=== PATIENT | female | born 1955 | race Caucasian/White ===

== ENCOUNTER → 2016-09-25 | Outpatient (CLI) | payer BC ==
[~2016-09-25] MED LIST: DOCU100C24 PO; HYDROCODONE-ACETAMIN PO; LEVO88TA4 PO; VITAMIN B12 PEG
== END | disposition home or self-care (01) ==
LOC: ROC 14:31
PROVIDERS: ATTEND Radiology Radiation Oncology
DX: C50.912 Malignant neoplasm of unspecified site of left female breast (principal); N64.89 Other specified disorders of breast
CPT/HCPCS: 99213; G0463

== ENCOUNTER 2017-04-20 23:36 | Inpatient (IN) | payer BC ==
[~2017-04-20] VITALS: Ht 152.4 cm; Wt 64.0 kg
[2017-04-21] MEDS ORDERED: SODIUM CHLORIDE 0.9% 1,000 ML IV ONE ×2 (00:28→03:05)
[2017-04-21] MEDS ORDERED: ONDANSETRON 2MG/ML, 2ML IVPush ONE (00:30)
[2017-04-21] MEDS ORDERED: SODIUM CHLORIDE FLUSH 10ML SYR IVF ONE (00:30)
[2017-04-21] MEDS ORDERED: HYDROmorphone 1 MG/ML, 1ML IVPush PRN ×2 (00:30→03:30)
[2017-04-21] MEDS ORDERED: HYDROmorphone 1 MG/ML, 1ML ONE (00:41)
[2017-04-21] MEDS ORDERED: ONDANSETRON 2MG/ML, 2ML ONE (00:41)
[2017-04-21 00:45] LABS: HEMATOCRIT 47.4 % (34.6-47.8); HEMOGLOBIN 15.9 g/dL (11.7-16.4); WHITE BLOOD COUNT 9.6 x10^3/uL (3.4-10)
[2017-04-21 00:58] LABS: ASPARTATE AMINO TRANSFERASE 22 U/L (15-37); BLOOD UREA NITROGEN 15 mg/dL (7-18)
[2017-04-21] MEDS ORDERED: OMNIPAQUE 350 MG/ML, 100ML BOTTLE ONE (02:03)
[2017-04-21] MEDS ORDERED: ONDANSETRON 2MG/ML, 2ML IVPush PRN ×2 (03:30→04:30)
[2017-04-21] MEDS ORDERED: SODIUM CHLORIDE FLUSH 10ML SYR IVF PRN (03:30)
[2017-04-21] MEDS ORDERED: CEFTRIAXONE PMX 1GM/50ML 50 ML ONE (03:36)
[2017-04-21] MEDS ORDERED: CEFTRIAXONE PMX 1GM/50ML 50 ML IVPB ONE (04:00)
[2017-04-21] MEDS ORDERED: morphine SULFATE 10 MG/ML, 1ML IVPush PRN (04:30)
[2017-04-21] MEDS ORDERED: ACETAMINOPHEN 325 MG TABLET PO PRN (04:30)
[2017-04-21] MEDS ORDERED: hydrALAzine 20 MG/ML, 1ML IVPush PRN (04:30)
[2017-04-21 04:43] VITALS: BP 138/78
[2017-04-21] MEDS: SODIUM CHLORIDE 0.9% 1,000 ML IV SCH ×2 (04:53→14:29)
[2017-04-21] MEDS ORDERED: ANASTROZOLE 1 MG TABLET PO SCH (05:00)
[2017-04-21] MEDS: ENOXAPARIN 40 MG/0.4 ML SQ SCH (05:27)
[2017-04-21] MEDS: ANASTROZOLE 1 MG TABLET PO SCH (05:29)
[2017-04-21] MEDS: LEVOTHYROXINE 75 MCG TABLET PO SCH (05:29)
[2017-04-21 06:50] VITALS: BP 101/63
[2017-04-21 13:40] VITALS: BP 127/62
[2017-04-21 20:51] VITALS: BP 94/52
[2017-04-22] MEDS: SODIUM CHLORIDE 0.9% 1,000 ML IV SCH ×3 (00:23→12:09)
[2017-04-22 03:14] VITALS: BP 97/50
[2017-04-22] MEDS: CEFTRIAXONE PMX 1GM/50ML 50 ML IV SCH (04:15)
[2017-04-22] MEDS: ENOXAPARIN 40 MG/0.4 ML SQ SCH (04:48)
[2017-04-22 05:35] LABS: BLOOD UREA NITROGEN 6 mg/dL (7-18)
[2017-04-22] MEDS: LEVOTHYROXINE 75 MCG TABLET PO SCH (05:41)
[2017-04-22] MEDS: ANASTROZOLE 1 MG TABLET PO SCH (05:42)
[2017-04-22 08:30] VITALS: BP 132/71
[2017-04-22 13:47] VITALS: BP 131/69
[2017-04-22] MEDS ORDERED: ACETAMINOPHEN 325 MG TABLET PO PRN (19:30)
[2017-04-22] MEDS ORDERED: hydrALAzine 20 MG/ML, 1ML IVPush PRN (19:30)
[2017-04-22] MEDS ORDERED: ONDANSETRON 2MG/ML, 2ML IVPush PRN (19:30)
[2017-04-22 21:52] VITALS: BP 117/63
[2017-04-23 02:47] VITALS: BP 114/64
[2017-04-23] MEDS: CEFTRIAXONE PMX 1GM/50ML 50 ML IV SCH (04:11)
[2017-04-23] MEDS: ENOXAPARIN 40 MG/0.4 ML SQ SCH (04:11)
[2017-04-23] MEDS: LEVOTHYROXINE 75 MCG TABLET PO SCH (05:46)
[2017-04-23] MEDS: ANASTROZOLE 1 MG TABLET PO SCH (05:47)
[2017-04-23] MEDS ORDERED: NITR100C56 PO (06:41)
[2017-04-23 07:16] VITALS: BP 125/77
[2017-04-23] MEDS ORDERED: FLU VACC QS2017-18 (36MOS+) UP/PF 0.5 ML IM-VACC ONE (10:30)
[2017-04-23 11:30] VITALS: BP 120/73
== END 2017-04-23 11:30 | disposition home or self-care (01) | DRG 389 ==
LOC: ED 23:59 → EDIP 04-21 03:05 → 4NOR 04-21 04:33
PROVIDERS: ADMIT Hospitalist; ATTEND Hospitalist
DX: K56.52 Intestinal adhesions [bands] with complete obstruction (principal); N30.00 Acute cystitis without hematuria; E03.9 Hypothyroidism, unspecified; K66.0 Peritoneal adhesions (postprocedural) (postinfection); Z79.811 Long term (current) use of aromatase inhibitors; Z85.3 Personal history of malignant neoplasm of breast; Z90.81 Acquired absence of spleen; Z92.21 Personal history of antineoplastic chemotherapy; Z92.3 Personal history of irradiation
CPT/HCPCS: 36415; 74177; 80048; 80053; 81001; 83605; 83690; 83735; 84100; 84484; 85025; 85610; 85730; 87086; 90686; 96365; 96375; J0696; J1170; J1650; J2405; Q9967; J2270; J7030

== ENCOUNTER 2017-05-01 10:17 | Emergency (ER) | payer BC ==
[~2017-05-01] VITALS: Ht 152.4 cm; Wt 63.0 kg
[~2017-05-01 10:17] MED LIST changes: +NITR100C56 PO
[2017-05-01] MEDS ORDERED: ONDANSETRON 2MG/ML, 2ML IVPush ONE (11:00)
[2017-05-01] MEDS ORDERED: MORPHINE SULFATE 4 MG/ML, 1ML IVPush PRN (11:00)
[2017-05-01] MEDS ORDERED: SODIUM CHLORIDE FLUSH 10ML SYR IVF ONE (11:00)
[2017-05-01] MEDS ORDERED: SODIUM CHLORIDE 0.9% 1,000ML IVBOLUS ONE (11:00)
[2017-05-01] MEDS ORDERED: morphine SULFATE 10 MG/ML, 1ML ONE (11:07)
[2017-05-01] MEDS ORDERED: ONDANSETRON 2MG/ML, 2ML ONE (11:07)
[2017-05-01] MEDS ORDERED: DIPHENHYDRAMINE 50 MG/ML, 1ML ONE (11:16)
[2017-05-01 11:19] LABS: HEMATOCRIT 46.2 % (34.6-47.8); HEMOGLOBIN 15.6 g/dL (11.7-16.4); WHITE BLOOD COUNT 9.5 x10^3/uL (3.4-10)
[2017-05-01 11:29] LABS: ASPARTATE AMINO TRANSFERASE 16 U/L (15-37); BLOOD UREA NITROGEN 15 mg/dL (7-18)
[2017-05-01 14:07] VITALS: BP 119/63
== END 2017-05-01 14:08 | disposition home or self-care (01) ==
LOC: ED 10:38
DX: N30.01 Acute cystitis with hematuria (principal); R11.0 Nausea
CPT/HCPCS: 36415; 74000; 80053; 81001; 83690; 85025; 87086; 93005; 96361; 96374; 96375; 99285; J2405; J7030

== ENCOUNTER 2017-05-04 14:11 | Inpatient (IN) | payer BC ==
[~2017-05-04] VITALS: Ht 152.4 cm; Wt 63.5 kg
[2017-05-04] MEDS ORDERED: SODIUM CHLORIDE 0.9% 1,000 ML IV ONE (15:02)
[2017-05-04] MEDS ORDERED: HYDROmorphone 1 MG/ML, 1ML ONE (15:13)
[2017-05-04] MEDS ORDERED: ONDANSETRON 2MG/ML, 2ML ONE (15:13)
[2017-05-04] MEDS: HYDROmorphone 1 MG/ML, 1ML IVPush PRN ×2 (15:18→18:38)
[2017-05-04] MEDS ORDERED: SODIUM CHLORIDE 0.9% 1,000ML IVBOLUS ONE (15:30)
[2017-05-04] MEDS ORDERED: SODIUM CHLORIDE FLUSH 10ML SYR IVF ONE (15:30)
[2017-05-04] MEDS ORDERED: ONDANSETRON 2MG/ML, 2ML IVPush ONE (15:30)
[2017-05-04 15:43] LABS: ASPARTATE AMINO TRANSFERASE 20 U/L (15-37); BLOOD UREA NITROGEN 18 mg/dL (7-18)
[2017-05-04 15:47] LABS: HEMATOCRIT 48.3 % (34.6-47.8); HEMOGLOBIN 16.3 g/dL (11.7-16.4); WHITE BLOOD COUNT 7.4 x10^3/uL (3.4-10)
[2017-05-04 17:49] LABS: PATH.CAST-FLAG NOT PRESENT; SPERM-FLAG NOT PRESENT; SRC-FLAG NOT PRESENT; XTAL-FLAG NOT PRESENT; YLC-FLAG NOT PRESENT
[2017-05-04] MEDS ORDERED: HYDROmorphone 2 MG/ML, 1ML ONE (18:32)
[2017-05-04] MEDS ORDERED: BENZOCAINE 20% SPRAY 0.5ML ONE (18:36)
[2017-05-04] MEDS ORDERED: ENOXAPARIN 40 MG/0.4 ML SQ SCH (19:00)
[2017-05-04] MEDS ORDERED: ONDANSETRON 2MG/ML, 2ML IVPush PRN (19:00)
[2017-05-04] MEDS ORDERED: CEFTRIAXONE PMX 1GM/50ML 50 ML ONE (19:29)
[2017-05-04] MEDS: CEFTRIAXONE PMX 1GM/50ML 50 ML IV SCH (19:39)
[2017-05-04] MEDS: D5%-0.45NACL+KCL 20MEQ 1,000 ML IV SCH (21:34)
[2017-05-05 01:07] VITALS: BP 112/71
[2017-05-05 02:49] VITALS: BP 129/78
[2017-05-05] MEDS: D5%-0.45NACL+KCL 20MEQ 1,000 ML IV SCH ×3 (04:52→22:21)
[2017-05-05 05:22] LABS: HEMATOCRIT 42.6 % (34.6-47.8); HEMOGLOBIN 14.3 g/dL (11.7-16.4)
[2017-05-05 05:46] LABS: BLOOD UREA NITROGEN 11 mg/dL (7-18)
[2017-05-05 07:38] VITALS: BP 101/61
[2017-05-05] MEDS: HYDROmorphone 2 MG/ML, 1ML IVPush PRN (12:26)
[2017-05-05 13:07] VITALS: BP 110/66
[2017-05-05] MEDS: CEFTRIAXONE PMX 1GM/50ML 50 ML IV SCH (20:02)
[2017-05-05 21:14] VITALS: BP 131/76
[2017-05-06 02:31] VITALS: BP 134/78
[2017-05-06] MEDS: HYDROmorphone 2 MG/ML, 1ML IVPush PRN ×2 (03:56→15:32)
[2017-05-06 05:28] LABS: BLOOD UREA NITROGEN 4 mg/dL (7-18)
[2017-05-06 08:15] VITALS: BP 144/79
[2017-05-06] MEDS: D5%-0.45NACL+KCL 20MEQ 1,000 ML IV SCH ×3 (08:43→23:45)
[2017-05-06] MEDS: ENOXAPARIN 40 MG/0.4 ML SQ SCH (10:10)
[2017-05-06 16:27] VITALS: BP 133/77
[2017-05-06] MEDS: CEFTRIAXONE PMX 1GM/50ML 50 ML IV SCH (19:53)
[2017-05-06 20:59] VITALS: BP 116/73
[2017-05-07 02:30] VITALS: BP 116/78
[2017-05-07 05:21] LABS: BLOOD UREA NITROGEN 4 mg/dL (7-18)
[2017-05-07 07:20] VITALS: BP 118/79
[2017-05-07] MEDS: D5%-0.45NACL+KCL 20MEQ 1,000 ML IV SCH ×2 (09:06→19:34)
[2017-05-07] MEDS: ENOXAPARIN 40 MG/0.4 ML SQ SCH (09:06)
[2017-05-07 13:15] VITALS: BP 119/84
[2017-05-07 20:00] VITALS: BP 114/73
[2017-05-08 02:00] VITALS: BP 120/80
[2017-05-08] MEDS: D5%-0.45NACL+KCL 20MEQ 1,000 ML IV SCH (02:43)
[2017-05-08 06:06] LABS: BLOOD UREA NITROGEN 5 mg/dL (7-18)
[2017-05-08 06:10] LABS: ASPARTATE AMINO TRANSFERASE 21 U/L (15-37)
[2017-05-08 07:47] VITALS: BP 115/96
[2017-05-08] MEDS: ENOXAPARIN 40 MG/0.4 ML SQ SCH (08:00)
[2017-05-08 13:35] VITALS: BP 122/77
[2017-05-08 19:57] VITALS: BP 112/79
[2017-05-08] MEDS ORDERED: D5%-0.45NACL+KCL 20MEQ 1,000 ML IV SCH (22:00)
[2017-05-09 01:59] VITALS: BP 108/70
[2017-05-09] MEDS ORDERED: LEVOTHYROXINE 88 MCG TABLET PO SCH (06:00)
[2017-05-09 07:33] VITALS: BP 109/74
[2017-05-09] MEDS: ENOXAPARIN 40 MG/0.4 ML SQ SCH (08:00)
== END 2017-05-09 11:21 | disposition home or self-care (01) | DRG 389 ==
LOC: ED 15:36 → EDIP 18:46 → 3NE 20:21 → 3NW 05-05 15:04
PROVIDERS: ADMIT Family Medicine; ATTEND Family Medicine
DX: K56.51 Intestinal adhesions [bands], with partial obstruction (principal); N30.00 Acute cystitis without hematuria; N17.9 Acute kidney failure, unspecified; C50.919 Malignant neoplasm of unspecified site of unspecified female breast; E86.0 Dehydration; E03.9 Hypothyroidism, unspecified; Z90.81 Acquired absence of spleen; Z80.8 Family history of malignant neoplasm of other organs or systems; Z82.49 Family history of ischemic heart disease and other diseases of the circulatory system; Z83.3 Family history of diabetes mellitus; Z79.899 Other long term (current) drug therapy
CPT/HCPCS: 36415; 74177; 80048; 80053; 81001; 82040; 83605; 83690; 83735; 84100; 85025; 87086; 93005; 96374; 96375; 96376; J0696; J1170; J1650; J2405; J3480; J7030

== ENCOUNTER 2017-05-30 22:24 | Inpatient (IN) | payer BC ==
[~2017-05-30] VITALS: Ht 152.4 cm; Wt 60.8 kg
[2017-05-30] MEDS ORDERED: HYDROmorphone 1 MG/ML, 1ML ONE (23:12)
[2017-05-30] MEDS ORDERED: ONDANSETRON 2MG/ML, 2ML ONE (23:12)
[2017-05-30] MEDS: HYDROmorphone 1 MG/ML, 1ML IVPush PRN (23:18)
[2017-05-30 23:20] LABS: HEMATOCRIT 45.2 % (34.6-47.8); HEMOGLOBIN 15.3 g/dL (11.7-16.4); WHITE BLOOD COUNT 8.2 x10^3/uL (3.4-10)
[2017-05-30 23:30] LABS: ASPARTATE AMINO TRANSFERASE 22 U/L (15-37); BLOOD UREA NITROGEN 11 mg/dL (7-18)
[2017-05-30] MEDS ORDERED: SODIUM CHLORIDE 0.9% 1,000ML IVBOLUS ONE (23:30)
[2017-05-30] MEDS ORDERED: SODIUM CHLORIDE FLUSH 10ML SYR IVF ONE (23:30)
[2017-05-30] MEDS ORDERED: ONDANSETRON 2MG/ML, 2ML IVPush ONE (23:30)
[2017-05-30] MEDS ORDERED: OMNIPAQUE 350 MG/ML, 100ML BOTTLE ONE (23:57)
[2017-05-31 00:27] LABS: PATH.CAST-FLAG NOT PRESENT; SPERM-FLAG NOT PRESENT; SRC-FLAG NOT PRESENT; XTAL-FLAG NOT PRESENT; YLC-FLAG NOT PRESENT
[2017-05-31] MEDS ORDERED: CIPROFLOXACIN/PMX 400MG/200ML 100 ML IVPB ONE (00:30)
[2017-05-31] MEDS ORDERED: METRONIDAZOLE PMX 500MG/100ML 100 ML IV ONE (00:30)
[2017-05-31] MEDS ORDERED: LEVOFLOXACIN/PMX 500MG/100ML 100 ML IV SCH (00:30)
[2017-05-31] MEDS ORDERED: HYDROmorphone 2 MG/ML, 1ML IVPush PRN (00:30)
[2017-05-31] MEDS ORDERED: ONDANSETRON 2MG/ML, 2ML IVPush PRN (00:30)
[2017-05-31] MEDS ORDERED: hydrALAzine 20 MG/ML, 1ML IVPush PRN (00:30)
[2017-05-31] MEDS ORDERED: LORazepam 2 MG/ML, 1ML IVPush PRN (00:30)
[2017-05-31] MEDS ORDERED: LEVOFLOXACIN/PMX 500MG/100ML 100 ML ONE (00:41)
[2017-05-31] MEDS ORDERED: CIPROFLOXACIN/PMX 400MG/200ML 200 ML ONE (00:41)
[2017-05-31] MEDS ORDERED: HYDROmorphone 1 MG/ML, 1ML ONE (00:49)
[2017-05-31] MEDS: HYDROmorphone 1 MG/ML, 1ML IVPush PRN (00:53)
[2017-05-31 02:01] VITALS: BP 119/72
[2017-05-31] MEDS: SODIUM CHLORIDE 0.9% 1,000 ML IV SCH ×3 (02:25→18:33)
[2017-05-31] MEDS ORDERED: METOCLOPRAMIDE 5 MG/ML, 2ML IVPush ONE (03:00)
[2017-05-31] MEDS: METRONIDAZOLE PMX 500MG/100ML 100 ML IV SCH ×3 (03:56→19:59)
[2017-05-31 08:00] VITALS: BP 110/68
[2017-05-31] MEDS: PANTOPRAZOLE 40 MG IV IVPush SCH (08:06)
[2017-05-31] MEDS: ENOXAPARIN 40 MG/0.4 ML SQ SCH (08:06)
[2017-05-31] MEDS: CEFTRIAXONE PMX 1GM/50ML 50 ML IV SCH (10:54)
[2017-05-31] MEDS: LEVOTHYROXINE 88 MCG TABLET PO SCH (12:39)
[2017-05-31 14:00] VITALS: BP 97/51
[2017-05-31 20:05] VITALS: BP 115/64
[2017-06-01 01:50] VITALS: BP 94/49
[2017-06-01] MEDS: SODIUM CHLORIDE 0.9% 1,000 ML IV SCH ×2 (03:30→15:11)
[2017-06-01] MEDS: METRONIDAZOLE PMX 500MG/100ML 100 ML IV SCH ×3 (04:17→12:08)
[2017-06-01] MEDS: LEVOTHYROXINE 88 MCG TABLET PO SCH (05:55)
[2017-06-01 06:36] LABS: HEMOGLOBIN 14.2 g/dL (11.7-16.4); WHITE BLOOD COUNT 5.3 x10^3/uL (3.4-10)
[2017-06-01 06:43] LABS: BLOOD UREA NITROGEN 2 mg/dL (7-18)
[2017-06-01 07:45] VITALS: BP 109/58
[2017-06-01] MEDS: ENOXAPARIN 40 MG/0.4 ML SQ SCH (09:58)
[2017-06-01] MEDS: CEFTRIAXONE PMX 1GM/50ML 50 ML IV SCH (10:38)
[2017-06-01] MEDS: PANTOPRAZOLE 40 MG IV IVPush SCH (10:38)
[2017-06-01] MEDS ORDERED: BISACODYL 10 MG SUPP PR SCH (11:00)
[2017-06-01] MEDS ORDERED: SENNA/DOCUSATE TABLET PO SCH (11:00)
[2017-06-01 14:13] VITALS: BP 108/70
[2017-06-01] MEDS ORDERED: METR500T PO (16:46)
[2017-06-01] MEDS ORDERED: SENN1TAB7 PO (16:46)
[2017-06-01] MEDS ORDERED: CEFD300C37 PO (16:46)
== END 2017-06-01 18:45 | disposition home or self-care (01) | DRG 392 ==
LOC: ED 23:59 → EDIP 05-31 00:30 → 3NE 05-31 01:47
PROVIDERS: ADMIT Family Medicine; ATTEND Family Medicine
DX: K52.9 Noninfective gastroenteritis and colitis, unspecified (principal); K56.600 Partial intestinal obstruction, unspecified as to cause; E27.8 Other specified disorders of adrenal gland; K59.00 Constipation, unspecified; R82.71 Bacteriuria; I87.8 Other specified disorders of veins; E03.9 Hypothyroidism, unspecified; Z85.3 Personal history of malignant neoplasm of breast; Z92.21 Personal history of antineoplastic chemotherapy; Z92.3 Personal history of irradiation; Z79.899 Other long term (current) drug therapy
CPT/HCPCS: 36415; 74020; 74177; 80048; 80053; 81001; 83735; 84100; 84443; 85025; 87046; 87086; 87328; 87329; 87899; 96361; 96365; 96375; 96376; J0696; J0744; J1170; J1650; J1956; J2405; Q9967; C9113; J2765; J7030